=== PATIENT | male | born 1985 ===

== ENCOUNTER 2025-02-14 06:05 | Day surgery (SDC) | payer OTHER, SELFPAY ==
[2025-02-14] VITALS (7 sets, daily range): BP systolic 117–151; BP diastolic 75–93
[2025-02-14] MEDS: TYLENOL 1000 MG PO (07:21)
[2025-02-14] MEDS: NORMOSOL-R/PLASMALYTE-A 1000 IV (07:27)
== END 2025-02-14 09:40 | disposition home or self-care (01) ==
LOC: SDS 06:05
PROVIDERS: ATTENDING PHYSICIAN Surgery; FAMILY PHYSICIAN Family Medicine
DX: K42.9 Umbilical hernia without obstruction or gangrene (principal)
CPT/HCPCS: 49593; C1781